=== PATIENT | female | born 1995 | race Caucasian/White ===

== ENCOUNTER 2023-11-19 08:58 | Outpatient (RCR) | payer OTHER, SELFPAY | END 2023-11-19 23:59 | disposition home or self-care (01) | LOC: RPT 08:58 | PROVIDERS: ATTENDING PHYSICIAN Midwife; PRIMARYCARE PHYSICIAN Nurse Practitioner Family | DX: N81.84 Pelvic muscle wasting (principal); Z73.6 Limitation of activities due to disability; M62.50 Muscle wasting and atrophy, not elsewhere classified, unspecified site | CPT/HCPCS: 97110 ==

== ENCOUNTER 2023-12-23 19:03 | Outpatient (RCR) | payer OTHER, SELFPAY | END 2023-12-23 23:59 | disposition home or self-care (01) | LOC: RPT 19:03 | PROVIDERS: ATTENDING PHYSICIAN Midwife; PRIMARYCARE PHYSICIAN Nurse Practitioner Family | DX: N81.84 Pelvic muscle wasting (principal); M62.50 Muscle wasting and atrophy, not elsewhere classified, unspecified site; Z73.6 Limitation of activities due to disability | CPT/HCPCS: 97110; 97140; 97535 ==

== ENCOUNTER 2024-02-12 16:12 | Outpatient (RCR) | payer OTHER, SELFPAY | END 2024-02-12 23:59 | disposition home or self-care (01) | LOC: RPT 16:12 | PROVIDERS: ATTENDING PHYSICIAN Midwife; PRIMARYCARE PHYSICIAN Nurse Practitioner Family | DX: N81.84 Pelvic muscle wasting (principal); Z73.6 Limitation of activities due to disability | CPT/HCPCS: 97110; 97112 ==

== ENCOUNTER 2024-03-18 11:55 | Outpatient (RCR) | payer OTHER, SELFPAY | END 2024-03-18 23:59 | disposition home or self-care (01) | LOC: RPT 11:55 | PROVIDERS: ATTENDING PHYSICIAN Midwife; PRIMARYCARE PHYSICIAN Nurse Practitioner Family | DX: N81.84 Pelvic muscle wasting (principal); Z73.6 Limitation of activities due to disability; M62.50 Muscle wasting and atrophy, not elsewhere classified, unspecified site | CPT/HCPCS: 97110; 97112; 97140 ==

== ENCOUNTER 2024-04-08 18:15 | Outpatient (RCR) | payer OTHER, SELFPAY | END 2024-04-08 23:59 | disposition home or self-care (01) | LOC: RPT 18:15 | PROVIDERS: ATTENDING PHYSICIAN Midwife; PRIMARYCARE PHYSICIAN Nurse Practitioner Family | DX: N81.84 Pelvic muscle wasting (principal); M62.50 Muscle wasting and atrophy, not elsewhere classified, unspecified site; Z73.6 Limitation of activities due to disability | CPT/HCPCS: 97110; 97112; 97140 ==

== ENCOUNTER 2024-06-01 17:04 | Outpatient (RCR) | payer OTHER, SELFPAY | END 2024-06-01 23:59 | disposition home or self-care (01) | LOC: RPT 17:04 | PROVIDERS: ATTENDING PHYSICIAN Midwife; PRIMARYCARE PHYSICIAN Nurse Practitioner Family | DX: N81.84 Pelvic muscle wasting (principal); Z73.6 Limitation of activities due to disability; M62.50 Muscle wasting and atrophy, not elsewhere classified, unspecified site | CPT/HCPCS: 97110; 97140 ==

== ENCOUNTER → 2025-05-16 06:47 | Outpatient (REF) | payer OTHER, SELFPAY | LOC: PNTC 06:47 | PROVIDERS: ATTENDING PHYSICIAN Advanced Practice Midwife | DX: O36.80X0 Pregnancy with inconclusive fetal viability, not applicable or unspecified (principal) | CPT/HCPCS: 76801 ==

== ENCOUNTER → 2025-06-13 07:17 | Outpatient (REF) | payer OTHER, SELFPAY | LOC: PNTC 07:17 | PROVIDERS: ATTENDING PHYSICIAN Advanced Practice Midwife | DX: Z36.0 Encounter for antenatal screening for chromosomal anomalies (principal); Z36.82 Encounter for antenatal screening for nuchal translucency | CPT/HCPCS: 76801; 76813 ==

== ENCOUNTER 2025-06-16 08:56 | Outpatient (RCR) | payer OTHER, SELFPAY | END 2025-06-16 23:59 | disposition home or self-care (01) | LOC: RPT 08:56 | PROVIDERS: ATTENDING PHYSICIAN Advanced Practice Midwife; FAMILY PHYSICIAN Nurse Practitioner Family | DX: N81.84 Pelvic muscle wasting (principal); Z73.6 Limitation of activities due to disability | CPT/HCPCS: 97110; 97161 ==

== ENCOUNTER 2025-07-21 17:44 | Outpatient (RCR) | payer OTHER, SELFPAY | END 2025-07-21 23:59 | disposition home or self-care (01) | LOC: RPT 17:44 | PROVIDERS: ATTENDING PHYSICIAN Advanced Practice Midwife; FAMILY PHYSICIAN Nurse Practitioner Family | DX: N81.84 Pelvic muscle wasting (principal); Z73.6 Limitation of activities due to disability | CPT/HCPCS: 97110; 97140 ==

== ENCOUNTER → 2025-08-01 07:03 | Outpatient (REF) | payer OTHER, SELFPAY | LOC: PNTC 07:03 | PROVIDERS: ATTENDING PHYSICIAN Advanced Practice Midwife | DX: Z36.3 Encounter for antenatal screening for malformations (principal); Z36.89 Encounter for other specified antenatal screening | CPT/HCPCS: 76805 ==

== ENCOUNTER 2025-08-11 15:01 | Outpatient (RCR) | payer OTHER, SELFPAY | END 2025-08-11 23:59 | disposition home or self-care (01) | LOC: RPT 15:01 | PROVIDERS: ATTENDING PHYSICIAN Advanced Practice Midwife; FAMILY PHYSICIAN Nurse Practitioner Family | DX: N81.84 Pelvic muscle wasting (principal); Z73.6 Limitation of activities due to disability | CPT/HCPCS: 97110; 97140 ==

== ENCOUNTER 2025-09-01 14:35 | Outpatient (RCR) | payer OTHER, SELFPAY | END 2025-09-01 23:59 | disposition home or self-care (01) | LOC: RPT 14:35 | PROVIDERS: ATTENDING PHYSICIAN Advanced Practice Midwife; FAMILY PHYSICIAN Nurse Practitioner Family | DX: O26.892 Other specified pregnancy related conditions, second trimester (principal); N81.84 Pelvic muscle wasting; Z73.6 Limitation of activities due to disability | CPT/HCPCS: 97110; 97140; 97530 ==

== ENCOUNTER 2025-09-27 10:39 | Outpatient (RCR) | payer OTHER, SELFPAY | END 2025-09-27 23:59 | disposition home or self-care (01) | LOC: RPT 10:39 | PROVIDERS: ATTENDING PHYSICIAN Advanced Practice Midwife; FAMILY PHYSICIAN Nurse Practitioner Family | DX: O26.892 Other specified pregnancy related conditions, second trimester (principal); N81.84 Pelvic muscle wasting; Z34.81 Encounter for supervision of other normal pregnancy, first trimester; Z73.6 Limitation of activities due to disability | CPT/HCPCS: 97110; 97140 ==

== ENCOUNTER 2025-11-23 12:36 | Outpatient (RCR) | payer OTHER, SELFPAY | END 2025-11-23 23:59 | disposition home or self-care (01) | LOC: RPT 12:36 | PROVIDERS: ATTENDING PHYSICIAN Advanced Practice Midwife; FAMILY PHYSICIAN Nurse Practitioner Family | DX: O26.892 Other specified pregnancy related conditions, second trimester (principal); N81.84 Pelvic muscle wasting; Z73.6 Limitation of activities due to disability; Z34.81 Encounter for supervision of other normal pregnancy, first trimester | CPT/HCPCS: 97110; 97140; 97530 ==